=== PATIENT | female | born 1940 | race Hispanic/Latino ===

== ENCOUNTER 2017-08-24 09:02 | Day surgery (SDC) | payer MEDICARE ==
[~2017-08-24] VITALS: Ht 152.4 cm; Wt 62.2 kg
[~2017-08-24 09:02] MED LIST: AMLO5TAB2 PO; ASPI-555 PO; CHOL200074 PO; FISH1CAP49 PO; GLUC100019 PO; METO-391 PO; PRAV40TA3 PO; SODIUM CHLORIDE 0.9% 1000ML 1,000 ML IV ONE
[2017-08-24 09:38] VITALS: BP 143/68
[2017-08-24] MEDS ORDERED: PROPOFOL 10 MG/ML 20ML VIAL IV ONE (10:16)
[2017-08-24] MEDS ORDERED: FENTANYL CITRATE PF 50 MCG/1 ML 2ML VIAL ONE (10:16)
[2017-08-24 10:40] VITALS: BP 84/48
== END 2017-08-24 11:14 | disposition home or self-care (01) ==
LOC: DAH 09:02 → ENDO 09:02
PROVIDERS: ATTEND Internal Medicine Gastroenterology
DX: Z12.11 Encounter for screening for malignant neoplasm of colon (principal); K57.30 Diverticulosis of large intestine without perforation or abscess without bleeding; K56.2 Volvulus; I10 Essential (primary) hypertension; E78.5 Hyperlipidemia, unspecified; Z98.890 Other specified postprocedural states; Z79.899 Other long term (current) drug therapy; Z68.41 Body mass index [BMI] 40.0-44.9, adult
CPT/HCPCS: A4606; G0121; J2704; J3010; J7030

== ENCOUNTER → 2018-05-21 | Outpatient (CLI) | payer MEDICARE ==
[~2018-05-21] MED LIST changes: -AMLO5TAB2 PO; +AMLO5TAB7 PO; -SODIUM CHLORIDE 0.9% 1000ML 1,000 ML IV ONE
== END | disposition home or self-care (01) ==
LOC: RAH 09:57
PROVIDERS: ATTEND Family Medicine
DX: E04.1 Nontoxic single thyroid nodule (principal)
CPT/HCPCS: 76536

== ENCOUNTER → 2018-07-20 | Outpatient (CLI) | payer MEDICARE ==
[~2018-07-20] MED LIST changes: -AMLO5TAB7 PO; +AMLO5TAB9 PO
== END | disposition home or self-care (01) ==
LOC: SHCH 10:47
PROVIDERS: ATTEND Internal Medicine Cardiovascular Disease
DX: I10 Essential (primary) hypertension (principal); I25.10 Atherosclerotic heart disease of native coronary artery without angina pectoris
CPT/HCPCS: 93306

== ENCOUNTER → 2018-07-22 | Outpatient (CLI) | payer MEDICARE ==
[~2018-07-22] VITALS: Ht 152.4 cm; Wt 64.4 kg
[~2018-07-22] MED LIST changes: +REGADENOSON 0.4 MG/5 ML PF SYG IVP SCH
== END | disposition home or self-care (01) ==
LOC: SHCH 08:45
PROVIDERS: ATTEND Internal Medicine Cardiovascular Disease
DX: I10 Essential (primary) hypertension (principal); I25.10 Atherosclerotic heart disease of native coronary artery without angina pectoris
CPT/HCPCS: 78452; 93017; 96374; A9500 ×2; J2785

== ENCOUNTER 2018-08-31 05:58 | Day surgery (SDC) | payer MEDICARE ==
[2018-08-27 09:49] LABS: BASOPHILS % (AUTO) 0.6 % (0.0-5.0); EOSINOPHILS % (AUTO) 12.2 % (0.0-8.0); HEMATOCRIT 42.5 % (36-48); LYMPHOCYTES % (AUTO) 36.5 % (21.0-51.0); MEAN CORPUSCULAR HEMOGLOBIN 33.5 pg (27.0-33.0); MEAN CORPUSCULAR HGB CONC 33.9 g/dL (32.0-36.0); MEAN CORPUSCULAR VOLUME 98.8 fL (79-99); MONOCYTES % (AUTO) 5.7 % (3.0-13.0); NUCLEATED RED BLOOD CELLS 0.1 % (0.0-0.19); PLATELET COUNT (AUTO) 234 K/uL (130-400); RED CELL DISTRIBUTION WIDTH 13.3 % (11.0-15.5); WHITE BLOOD COUNT (AUTO) 8.9 K/uL (4.8-10.8)
[2018-08-27 09:51] LABS: APPEARANCE,URINE Cloudy (CLEAR); BILIRUBIN,URINE Negative (NEGATIVE); COLOR,URINE Yellow (YELLOW); GLUCOSE, URINE (UA) Negative (NEGATIVE); KETONES,URINE Negative (NEGATIVE); LEUKOCYTE ESTERASE ,URINE Large (NEGATIVE); NITRATE,URINE Negative (NEGATIVE); OCCULT BLOOD,URINE Negative (NEGATIVE); PH,URINE 5.5 (5.0-8.0); PROTEIN,URINE Negative (NEGATIVE)
[2018-08-27 10:04] VITALS: BP 155/69
[2018-08-27 10:04] LABS: INR 0.96 (0.85-1.15); PARTIAL THROMBOPLASTIN TIME 28.7 SEC (26.3-35.5); PROTHROMBIN TIME 10.1 SEC (9.6-11.6)
[2018-08-27 10:05] LABS: POTASSIUM 4.7 mmol/L (3.5-5.1)
[2018-08-27 10:16] LABS: BACTERIA,URINE Few /HPF (None Seen); MUCUS,URINE Rare LPF (None Seen); RBC,URINE 0-1 /HPF (0-1); SQUAMOUS EPITHELIAL CELL,UR Few /HPF (0-2)
--- NOTE | 2018-08-30 13:32 | NUR ---
UA ABNORMAL UA REPORTED TO MIKA BARRAZA, FURTHER ORDERS GIVEN AND WILL BE CARRIED OUT
[~2018-08-31] VITALS: Ht 149.9 cm; Wt 63.3 kg
[2018-08-31] VITALS (10 sets, daily range): BP systolic 101–128; BP diastolic 51–68
[~2018-08-31 05:58] MED LIST changes: -GLUC100019 PO; +LEVO25TA54 PO; -REGADENOSON 0.4 MG/5 ML PF SYG IVP SCH
[2018-08-31 07:10] LABS: APPEARANCE,URINE Clear (CLEAR); BILIRUBIN,URINE Negative (NEGATIVE); COLOR,URINE Yellow (YELLOW); GLUCOSE, URINE (UA) Negative (NEGATIVE); KETONES,URINE Negative (NEGATIVE); LEUKOCYTE ESTERASE ,URINE Moderate (NEGATIVE); NITRATE,URINE Negative (NEGATIVE); OCCULT BLOOD,URINE Negative (NEGATIVE); PROTEIN,URINE Negative (NEGATIVE)
[2018-08-31 07:12] LABS: RBC,URINE 0-1 /HPF (0-1)
[2018-08-31 07:13] LABS: BACTERIA,URINE Rare /HPF (None Seen); SQUAMOUS EPITHELIAL CELL,UR Few /HPF (0-2)
[2018-08-31] MEDS ORDERED: SODIUM CHLORIDE 0.9% 1000ML 1,000 ML IV ONE (07:57)
[2018-08-31] MEDS ORDERED: SODIUM BICARB 50MEQ 50ML VIAL ONE (09:05)
[2018-08-31] MEDS ORDERED: HEPARIN SODIUM 1000UNIT/ML 10ML VIAL ONE (09:05)
[2018-08-31] MEDS ORDERED: IOHEXOL 350 MG/ML 100ML INFUS..BTL IV ONE (09:06)
[2018-08-31] MEDS ORDERED: LIDOCAINE HCL 2% 20ML ONE (09:06)
[2018-08-31] MEDS ORDERED: NITROGLYCERIN 5 MG/ML 10 ML VIAL IV ONE (09:06)
[2018-08-31] MEDS ORDERED: IOHEXOL-350 50ML VIAL IV ONE (09:06)
[2018-08-31] MEDS ORDERED: MEPERIDINE-PF 25 MG/ML SYG ONE (09:22)
[2018-08-31] MEDS ORDERED: MIDAZOLAM HCL 1 MG/ML 2ML VIAL ONE (09:22)
[2018-08-31] MEDS ORDERED: ACETAMINOPHEN-CODEINE 300/30MG TAB PO PRN ×2 (10:00)
[2018-08-31] MEDS ORDERED: SODIUM CHLORIDE 0.9% 1000ML 1,000 ML IV SCH (10:00)
--- NOTE | 2018-08-31 10:10 | NUR ---
BOTH PATIENT AND FAMILY INSTRUCTED ON IMPORTANCE OF BEING IN BED REST AND KEEPING RIGHT LEG STRAIGHT TO PREVENT BLEEDING. PATIENT ENCOURAGED TO CALL FOR ASSISTANCE. BOTH VERBALIZED UNDERSTANDING AND AGREED TO ALL
--- NOTE | 2018-08-31 12:50 | NUR ---
REPORT GIVEN TO PARISH HAGAN RN, PATIENT SHOWS NO ACTIVE BLEEDING OR HEMATOMA TO RIGHT GROIN SITE, PATIENT DENIES SOB OR CHEST PAIN.
--- NOTE | 2018-08-31 14:20 | NUR ---
dc dc instructions given to pt/ spouse , instructed to f/u with dr. taya corona, pt verbalized understanding. no piv noted. right groin perclose dressing dry and intact
--- NOTE | 2018-08-31 14:35 | NUR ---
dc pt dc home via [facility],no distress noted. denies any pain or discomforts. accompanied by spouse. right groin perclose dressing dry and intact, no bleeding or hematoma noted to site.
== END 2018-08-31 14:35 | disposition home or self-care (01) ==
LOC: DAH 05:58
PROVIDERS: ATTEND Internal Medicine Cardiovascular Disease
DX: I25.118 Atherosclerotic heart disease of native coronary artery with other forms of angina pectoris (principal); I10 Essential (primary) hypertension; Z82.49 Family history of ischemic heart disease and other diseases of the circulatory system; R07.9 Chest pain, unspecified; Z79.899 Other long term (current) drug therapy; Z98.890 Other specified postprocedural states
CPT/HCPCS: 36415; 71045; 80048; 81001 ×2; 85025; 85610; 85730; 87088; 93005; 93458; A4606; C1760; C1894; J1644; J2175; J2250; J3490 ×3; J7030; Q9965; Q9967 ×2; 99156; 99157

== ENCOUNTER → 2022-10-09 | Outpatient (CLI) | payer MEDICARE ==
[~2022-10-09] MED LIST changes: +AMLO-257 PO; -AMLO5TAB9 PO; -ASPI-555 PO; +ASPI-556 PO
== END | disposition home or self-care (01) ==
LOC: RAH 13:09
PROVIDERS: ATTEND Family Medicine
DX: E04.1 Nontoxic single thyroid nodule (principal)
CPT/HCPCS: 76536